=== PATIENT | female | born 1940 | race Caucasian/White ===

== ENCOUNTER 2017-04-17 22:10 | Emergency (ER) | payer OTHER ==
[~2017-04-17] VITALS: Ht 149.9 cm; Wt 101.5 kg
[~2017-04-17 22:10] MED LIST: ALTACE2.5 MG PO; ASPIRIN325 MG PO; CENTRUM SILVER1 EAC4 PO; HYDROCHLOROTHIA25 MG PO; KLOR-CON M2020 MEQ PO; KLOR-CON20 MEQ PO; LEVAQUIN750 MG PO; MAGNESIUM400 M1 PO; METFORMIN HCL500 M4 PO; NORVASC5 MG PO; PHENERGAN-CODE120 ML PO; SYNTHROID125 MCG PO; TOPROL XL25 MG PO; VITAMIN D5000 UNI1 PO; ZITHROMAX Z-PA250 MG PO
[2017-04-18] MEDS ORDERED: TOBREX5 ML BOTH EYES (01:02)
[2017-04-18] MEDS ORDERED: ACULAR 0.5100 DROP/5 BOTH EYES (01:02)
[2017-04-18 01:50] VITALS: BP 139/64
== END 2017-04-18 01:50 | disposition home or self-care (01) ==
LOC: EME 22:10
DX: H10.9 Unspecified conjunctivitis (principal); I10 Essential (primary) hypertension; E78.5 Hyperlipidemia, unspecified; E03.9 Hypothyroidism, unspecified; Z79.82 Long term (current) use of aspirin; Z79.84 Long term (current) use of oral hypoglycemic drugs; Z88.0 Allergy status to penicillin
CPT/HCPCS: 99281; 99284

== ENCOUNTER 2018-03-31 23:32 | Emergency (ER) | payer OTHER ==
[~2018-03-31] VITALS: Ht 149.9 cm; Wt 108.1 kg
[~2018-03-31 23:32] MED LIST changes: +ACULAR 0.5100 DROP/5 BOTH EYES; +TOBREX5 ML BOTH EYES
[2018-03-31 23:56] LABS: HEMATOCRIT 34.6 % (36.0-46.0); HEMOGLOBIN 11.8 G/DL (11.9-15.5); MCH 32.2 PG (29.0-34.0); MCHC 34.1 G/DL (30.0-36.0); MCV 94.3 FL (83-99); PLATELET COUNT 188 K/uL (156-360); RBC DIS.WIDTH-CV 13.9 % (11.8-14.6); RBC DIS.WIDTH-SD 47.4 % (39-53); RED BLOOD COUNT 3.67 M/uL (3.80-5.20); WHITE BLOOD COUNT 7.6 K/uL (4.1-10.2)
[2018-04-01 00:05] LABS: CHLORIDE 107 mEq/L (99-109); POTASSIUM 4.2 mEq/L (3.7-5.4); SODIUM 142 mEq/L (136-147)
[2018-04-01 00:11] LABS: CREATININE 1.4 mg/dL (0.6-1.3); GFR ESTIMATE (CALCULATED) 39 mL/min/
[2018-04-01 00:12] LABS: UREA NITROGEN (BUN) 35 mg/dL (9-23)
[2018-04-01 00:19] LABS: TROP-I INTERPRETATION NEGATIVE; TROPONIN-I < 0.01 ng/mL (0.0-0.30)
[2018-04-01 00:23] LABS: GLUCOSE 163 mg/dL (70-99)
[2018-04-01 03:26] VITALS: BP 152/48
== END 2018-04-01 03:27 | disposition home or self-care (01) ==
LOC: EME 23:32
DX: R06.00 Dyspnea, unspecified (principal); J39.8 Other specified diseases of upper respiratory tract; R91.1 Solitary pulmonary nodule; R94.31 Abnormal electrocardiogram [ECG] [EKG]; E04.2 Nontoxic multinodular goiter; R16.0 Hepatomegaly, not elsewhere classified; I10 Essential (primary) hypertension; E78.5 Hyperlipidemia, unspecified; E03.9 Hypothyroidism, unspecified; E11.9 Type 2 diabetes mellitus without complications; Z79.84 Long term (current) use of oral hypoglycemic drugs; Z95.1 Presence of aortocoronary bypass graft; Z90.710 Acquired absence of both cervix and uterus; Z90.49 Acquired absence of other specified parts of digestive tract; Z88.0 Allergy status to penicillin; Z88.2 Allergy status to sulfonamides; Z79.82 Long term (current) use of aspirin
CPT/HCPCS: 71046; 71275; 80048; 84484; 85027; 85379; 93005; 99281; 99285; J7030